=== PATIENT | female | born 2000 | race Native Hawaiian/Other Pacific Islander ===

== ENCOUNTER 2021-03-09 17:51 | Emergency (ER) | payer OTHER ==
[~2021-03-09] VITALS: Ht 152.4 cm; Wt 53.5 kg
[2021-03-09 19:34] LABS: PLATELET COUNT 318 K/uL (152-353)
[2021-03-09 19:43] LABS: POTASSIUM 3.7 mmol/L (3.6-5.2)
[2021-03-09 21:30] VITALS: BP 112/68; TEMP 97.2
== END 2021-03-09 21:30 | disposition home or self-care (01) ==
LOC: ED 17:51
PROVIDERS: Emergency Medicine Emergency Medical Services
DX: R10.84 Generalized abdominal pain (principal); Z98.890 Other specified postprocedural states
CPT/HCPCS: 36415; 80053; 81000; 82150; 83690; 85027; 96360; 96361; 96375; 99284; J1885; J2405; Q9963